=== PATIENT | female | born 1955 | race African-American/Black ===

== ENCOUNTER 2021-10-22 04:31 | Day surgery (SDC) | payer OTHER ==
[2021-10-18 13:08] VITALS: BMI 32.9
[2021-10-22] MEDS ORDERED: DEXAMETHASONE SOD PHOSPHATE 4 MG/1 ML VIAL ONE ×2 (07:15→08:32)
[2021-10-22] MEDS ORDERED: LIDOCAINE HCL 2% (20ML MULTI-DOSE VIAL) ONE (07:15)
[2021-10-22] MEDS ORDERED: MIDAZOLAM HCL 2 MG/2 ML SINGLE DOSE VIAL ONE (07:40)
[2021-10-22] MEDS ORDERED: ceFAZolin SODIUM 1 GM VIAL ONE (07:41)
[2021-10-22] MEDS ORDERED: LIDOCAINE HCL/PF 2% SDV 5ML VIAL ONE (07:41)
[2021-10-22] MEDS ORDERED: PROPOFOL 20 ML ONE ×3 (07:41)
[2021-10-22] MEDS ORDERED: SODIUM CHLORIDE 0.9% P/F 10 ML VIAL IJ ONE (07:54)
[2021-10-22] MEDS ORDERED: ceFAZolin SODIUM 1 GM VIAL IVPB ONE (07:55)
[2021-10-22] MEDS ORDERED: SUCCINYLCHOLINE CHLORIDE 200 MG/10 ML SYRINGE ONE (08:01)
[2021-10-22] MEDS ORDERED: BUPIVACAINE HCL/PF 0.5% (5MG/ML) 10 ML VIAL IJ ONE (08:04)
[2021-10-22] MEDS ORDERED: LIDOCAINE HCL 2% (50ML VIAL) NR ONE (08:04)
[2021-10-22] MEDS ORDERED: ONDANSETRON 4 MG/2 ML VIAL ONE (08:32)
[2021-10-22] MEDS ORDERED: ACETAMINOPHEN 325 MG TABLET (FP) PO PRN (09:22)
[2021-10-22] MEDS ORDERED: ONDANSETRON 4 MG/2 ML VIAL IVPUSH PRN (09:22)
[2021-10-22] MEDS ORDERED: oxyCODONE HCL 5 MG TABLET PO PRN (09:22)
[2021-10-22] MEDS ORDERED: LACTATED RINGERS SOLUTION 1,000 ML IV SCH (09:30)
[2021-10-22 12:30] VITALS: BP 121/74; PULSE 84; TEMP 98.8
== END 2021-10-22 12:45 | disposition home or self-care (01) ==
LOC: JASU-SURG 04:31 → EDBD 07:30 → JASU-SURG 12:45
PROVIDERS: ATTEND Podiatrist
PROC: 0QBR0ZZ Excision of Left Toe Phalanx, Open Approach (ICD-10-PCS; principal; 2021-10-22 07:30)
DX: M20.11 Hallux valgus (acquired), right foot (principal)
CPT/HCPCS: 73630-TC-LT; 88304-TC; 88311-TC